=== PATIENT | male | born 1965 | race Caucasian/White ===

== ENCOUNTER → 2021-06-17 08:18 | Outpatient (CLI) | payer OTHER, SELFPAY ==
--- NOTE | 2021-06-17 | DI.ECHO.S_ITS ---
[place] [facility]---------+ [facility] +---------+ : : [address] : : : : [id number] : : : : Phone: [phone]---------+ Echocardiogram Report + + :Name: MURPHY CARDENAS Study Date: 06/17/2021 Height: 72 in : :[facility] ReadingLocation: Weight: 200 lb : : Gender: Male BSA: 2.1 m2 : :: 1965 Age: 55 yrs BP: 170/98 mmHg: :Reason For Study: PALIPITATIONS : :Ordering Physician: KAREN, : :VINICIO Moralez Performed By: Karely Rosario : :Referring: VINICIO JONES : + + Interpretation Summary 1) Normal left ventricular thickness, size, wall motion, and systolic function (EF 60-65%). 2) Normal right ventricular size and function. 3) No significant valvular abnormalities. 4) The ascending aorta is mildly enlarged at 3.7cm. 5) Hypertension present during the study (BP 170/98mmHg). 6) No prior Echo available for comparison. Procedure: A two-dimensional transthoracic echocardiogram with color flow and Doppler was performed. The study quality was technically adequate. There is no prior echocardiogram noted for this patient. The patient was in sinus rhythm with heart rates between 62-74 bpm during the exam. Left Ventricle: The left ventricle is normal in size and wall thickness. The ejection fraction is estimated to be 60-65%. Left ventricular systolic function appears normal without focal wall motion abnormalities. Diastolic parameters suggest probable normal left ventricular diastolic function and normal filling pressures. Right Ventricle: The right ventricle is normal in size and function. Atria: The left atrial size is normal. Right atrial size is normal. There is no Doppler evidence for an interatrial shunt. Mitral Valve: The mitral valve is normal in structure and function. There is trace mitral regurgitation. Aortic Valve: The aortic valve is trileaflet. The aortic valve opens well. There is no aortic valve stenosis. No aortic regurgitation is present. Tricuspid Valve: The tricuspid valve is normal in structure and function. There is trace tricuspid regurgitation. Pulmonary artery pressures cannot be estimated because of the lack of a measurable TR jet velocity but the IVC suggests a CVP of around 3 mmHg. Pulmonic Valve: The pulmonic valve leaflets are thin and pliable; valve motion is normal. There is trace pulmonic regurgitation. Great Vessels: The aortic root is normal size. The ascending aorta is mildly enlarged. The IVC is of normal diameter and collapses greater than 50% with a sniff. This suggests a low right atrial pressure of 3 mm Hg. Pericardium/ Pleura There is no pericardial effusion. There is no pleural effusion. MMode/2D Measurements & Calculations LVIDd: 4.7 cm LVOT diam: 2.2 cm LVIDs: 3.2 cm Ao root diam: 3.8 cm FS: 31.1 % asc Aorta Diam: 3.7 cm IVSd: 0.84 cm Ao Arch Diam (Prox Trans): 3.2 cm LVPWd: 0.91 cm LV de santiago. diameter/BSA (cm/m^2): 2.2 LV sys. diameter/BSA (cm/m^2): 1.5 LA A2 area: 22.3 cm2 RA long axis: 4.8 cm LA A4 area: 16.0 cm2 RA area: 14.6 cm2 LA length (vol): 5.2 cm RA vol: 37.9 ml LA vol: 58.1 ml RA : 17.8 ml/m2 LA vol index: 27.3 ml/m2 IVC diam: 1.3 cm RVD1 (basal): 3.4 cm TAPSE: 2.0 cm Doppler Measurements & Calculations Ao V2 max: 105.9 cm/sec LVOT Max Db: 88.8 cm/sec Ao V2 mean: 77.0 cm/sec LV V1 max P.2 mmHg Ao max P.5 mmHg LV V1 VTI: 20.5 cm Ao mean P.6 mmHg EDISON(I,D): 3.5 cm2 Ao V2 VTI: 22.9 cm EDISON(V,D): 3.3 cm2 sev ratio: 0.90 EDISON indexed to BSA (cm^2/m^2): 1.6 MV E max db: 76.3 cm/sec PA V2 max: 90.4 cm/sec MV A max db: 56.8 cm/sec PA V2 mean: 60.2 cm/sec MV E/A: 1.3 PA mean P.7 mmHg Med Peak E' Db: 8.9 cm/sec PA pr(Accel): 19.1 mmHg E/E' med: 8.6 Lat Peak E' Db: 8.3 cm/sec E/E' lat: 9.2 E/e' average: 8.9 MV dec time: 0.18 sec SVLVOT): 79.8 ml Reading Physician:12:46 PM
== END ==
PROVIDERS: PCP Family Medicine; Referring Provider Family Medicine; Visit Provider Family Medicine
DX: I77.89 Other specified disorders of arteries and arterioles (principal); R00.2 Palpitations; E78.5 Hyperlipidemia, unspecified; I10 Essential (primary) hypertension
CPT/HCPCS: 93306